=== PATIENT | male | born 1970 | race Hispanic/Latino ===

== ENCOUNTER 2022-04-03 23:22 | Emergency (ER) | payer BC ==
[~2022-04-03] VITALS: Ht 162.6 cm; Wt 82.1 kg
[2022-04-04] MEDS ORDERED: AZITHROMYCIN250 MG PO (00:12)
[2022-04-04] MEDS ORDERED: BENZONATATE200 MG PO (00:12)
[2022-04-04] MEDS ORDERED: THERAFLU NIGHT1 EAC5 PO (00:12)
[2022-04-04] MEDS ORDERED: TAMIFLU75 MG PO (00:12)
[2022-04-04] MEDS ORDERED: CEFTRIAXONE 1 GM VIAL ONE (00:15)
[2022-04-04] MEDS ORDERED: CEFTRIAXONE 1 GM VIAL IM ONE (00:30)
[2022-04-04 00:48] VITALS: BP 144/95
== END 2022-04-04 00:45 | disposition home or self-care (01) ==
LOC: FSED 23:32
DX: R05.9 Cough, unspecified (principal); J10.1 Influenza due to other identified influenza virus with other respiratory manifestations; R09.89 Other specified symptoms and signs involving the circulatory and respiratory systems
CPT/HCPCS: 71046; 83518; 87400; 96372; 99283; J0696

== ENCOUNTER 2022-06-25 03:09 | Emergency (ER) | payer BC, OTHER ==
[~2022-06-25] VITALS: Ht 162.6 cm; Wt 79.8 kg
[~2022-06-25 03:09] MED LIST: AZITHROMYCIN250 MG PO; BENZONATATE200 MG PO; TAMIFLU75 MG PO; THERAFLU NIGHT1 EAC5 PO
[2022-06-25 05:06] VITALS: BP 173/99
== END 2022-06-25 05:05 | disposition home or self-care (01) ==
LOC: FSED 03:16
DX: S60.021A Contusion of right index finger without damage to nail, initial encounter (principal); W49.04XA Ring or other jewelry causing external constriction, initial encounter; M79.89 Other specified soft tissue disorders; Y92.89 Other specified places as the place of occurrence of the external cause
CPT/HCPCS: 99283